=== PATIENT | male | born 1990 | race American Indian/Alaskan Native ===

== ENCOUNTER 2018-06-21 05:19 | Emergency (ER) | payer SELFPAY ==
[2018-06-21 06:13] LABS: Basophils # (Auto) 0.1 K/mm3 (0.0-0.1); Basophils % (Auto) 0.8 % (0.0-1.8); Eosinophils # (Auto) 0.1 K/mm3 (0.0-0.4); Eosinophils % (Auto) 1.1 % (0.0-4.3); Hematocrit 48.1 % (35.5-45.6); Hemoglobin 15.7 gm/dl (11.8-15.2); Lymphocytes % (Auto) 31.4 % (13.4-35.0); Mean Corpuscular HGB Conc 33 % (32-34); Mean Corpuscular Hemoglobin 26 pg (28-32); Mean Corpuscular Volume 81 fl (84-94); Monocytes # (Auto) 0.8 K/mm3 (0.0-0.8); Monocytes % (Auto) 8.9 % (0.0-7.3); Platelet Count 252 K/mm3 (140-440); Red Blood Count 5.96 M/mm3 (3.65-5.03); Red Cell Distribution Width 14.3 % (13.2-15.2)
[2018-06-21 06:21] LABS: BUN/Creatinine Ratio 7; Blood Urea Nitrogen 8 mg/dL (9-20); Calcium 9.7 mg/dL (8.4-10.2); Hemolysis Index 18
[2018-06-21 07:26] LABS: Bilirubin,Urine NEG (Negative); Blood,Urine SM (Negative); Color,Urine Yellow (Yellow); Mucus,Urine FEW /HPF; Urobilinogen,Urine < 2.0 mg/dL (<2.0)
[2018-06-21 07:36] LABS: Amphetamine Screen,Urine PRESUMPTIVE NEGATIVE; Benzodiazepines Screen,Urine PRESUMPTIVE NEGATIVE; Cannabinoid Screen,Urine PRESUMPTIVE NEGATIVE; Cocaine Screen,Urine PRESUMPTIVE NEGATIVE; Methadone Screen,Urine PRESUMPTIVE NEGATIVE; Opiate Screen,Urine PRESUMPTIVE NEGATIVE
[2018-06-21 09:13] VITALS: BP 127/67
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
--- NOTE | 2018-06-21 21:42 | Cat Scan Report ---
FINAL REPORT EXAM: CT HEAD/BRAIN WO CON HISTORY: head injury TECHNIQUE: Noncontrast CT axial images of the brain. PRIORS: None. FINDINGS: No parenchymal mass, mass effect, hemorrhage, midline shift or hydrocephalus. No evidence of acute cortical infarct. No abnormal, extra-axial fluid or air collection. Osseous calvarium grossly intact. Slight cortical discontinuity and probable fracture of left nasal bones. IMPRESSION: 1. No acute intracranial findings. 2. Left nasal fracture, age-indeterminate.
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
--- NOTE | 2018-06-21 22:02 | XRay Report ---
FINAL REPORT EXAM: XR CHEST ROUTINE 2V HISTORY: cough TECHNIQUE: Frontal and lateral chest x-ray. PRIORS: None. FINDINGS: Cardiac and mediastinal silhouette within normal limits. Lungs are normally expanded and grossly clear. No pleural effusion or apparent pneumothorax. Bony thorax grossly unremarkable. IMPRESSION: 1. No acute consolidation.
--- NOTE | 2018-06-21 22:05 | XRay Report ---
FINAL REPORT EXAM: XR FOOT 3+V LT HISTORY: pain TECHNIQUE: 3 views of left foot. PRIORS: None. FINDINGS: No apparent fracture or dislocation. Joint spaces maintained. Soft tissues grossly unremarkable. IMPRESSION: 1. No acute osseous abnormality.
== END 2018-06-21 23:05 | disposition home or self-care (01) ==
LOC: ED 05:19
DX: S02.2XXA Fracture of nasal bones, initial encounter for closed fracture (principal); F10.10 Alcohol abuse, uncomplicated; F17.200 Nicotine dependence, unspecified, uncomplicated; Z79.899 Other long term (current) drug therapy; X58.XXXA Exposure to other specified factors, initial encounter; Y93.89 Activity, other specified; Y99.8 Other external cause status; Y92.89 Other specified places as the place of occurrence of the external cause
CPT/HCPCS: 36415; 70450; 70486; 71046; 73630; 80048; 80307; 81001; 85025; 99285; G0480; 80320

== ENCOUNTER 2021-12-01 15:23 | Emergency (ER) | payer SELFPAY ==
[2021-12-01] MEDS ORDERED: IBUPROFEN 800 MG TAB PO ONE (17:05)
--- NOTE | 2021-12-01 17:08 | Emergency Department Report ---
ED Abdominal Pain HPI - General Chief Complaint: Abdominal Pain Stated Complaint: ABD PAIN PUI?: No Time Seen by Provider: 12/01/21 17:00 Source: patient Mode of arrival: Ambulatory Limitations: No Limitations - History of Present Illness Initial Comments: Chief complaint: Abdominal pain HPI: This is a 31-year-old male without significant past medical history who presents with left lower quadrant abdominal crampy pain for the past 3 weeks. Hurts with straining. Hurts with movement. Hurts with palpation. Subjective fever. No history of abdominal surgeries. Normal appetite. Normal bowel movement yesterday. Intermittent nausea. Intermittent heartburn. He denies genital pain. Denies groin bulging or swelling Complaint: abdominal pain -: Gradual, week(s) (3 weeks) Location: LLQ Radiation: none Severity: moderate Severity scale (0 -10): 8 Quality: cramping Consistency: constant Improves With: nothing Worsens With: movement, other (Straining palpation) Associated Symptoms: nausea, other (Heartburn) - Related Data Previous Rx's Medication Instructions Recorded Last Taken Type Ibuprofen [Motrin] 800 mg PO Q8HR PRN #20 tablet 06/21/18 Unknown Rx Docusate Sodium [Colace] 100 mg PO BID 5 Days #10 capsule 12/01/21 Unknown Rx Allergies Allergy/AdvReac Type Severity Reaction Status Date / Time No Known Allergies Allergy Unverified 06/21/18 05:32 ED Review of Systems ROS: Stated complaint: ABD PAIN Other details as noted in HPI Comment: All other systems reviewed and negative Constitutional: fever. denies: chills, malaise Respiratory: denies: cough, shortness of breath Cardiovascular: denies: chest pain Gastrointestinal: abdominal pain, nausea, vomiting. denies: diarrhea, constipation Genitourinary: denies: urgency, dysuria, frequency, hematuria, discharge, testicular pain, testicular mass Musculoskeletal: denies: back pain Skin: denies: rash, lesions ED Past Medical Hx - Past Medical History Previous Medical History?: No - Surgical History Past Surgical History?: No - Social History Smoking Status: Current Every Day Smoker Substance Use Type: Alcohol - Medications Home Medications: Home Medications Medication Instructions Recorded Confirmed Last Taken Type Ibuprofen [Motrin] 800 mg PO Q8HR PRN #20 tablet 06/21/18 Unknown Rx Docusate Sodium [Colace] 100 mg PO BID 5 Days #10 capsule 12/01/21 Unknown Rx ED Physical Exam - General Limitations: No Limitations General appearance: alert, in no apparent distress, other (Smiling appears well nontoxic) - Head Head exam: Present: atraumatic, normocephalic - Eye Eye exam: Present: normal appearance - ENT ENT exam: Present: mucous membranes moist - Neck Neck exam: Present: normal inspection - Respiratory Respiratory exam: Present: normal lung sounds bilaterally. Absent: respiratory distress - Cardiovascular Cardiovascular Exam: Present: regular rate, normal rhythm, normal heart sounds. Absent: systolic murmur, diastolic murmur, rubs, gallop - GI/Abdominal GI/Abdominal exam: Present: soft, distended, tenderness, guarding, normal bowel sounds, other (Left lower quadrant tenderness with voluntary guarding slight distention of the abdomen). Absent: rebound - Rectal Rectal exam: Present: deferred - Extremities Exam Extremities exam: Present: normal inspection - Back Exam Back exam: Present: normal inspection - Neurological Exam Neurological exam: Present: alert, oriented X3 - Psychiatric Psychiatric exam: Present: normal affect, normal mood - Skin Skin exam: Present: warm, dry, intact, normal color. Absent: rash ED Medical Decision Making - Lab Data Result diagrams: 12/01/21 17:30 12/01/21 17:30 Laboratory Results - last 24 hr 12/01/21 12/01/21 17:30 17:30 WBC 9.5 RBC 5.92 H Hgb 14.5 Hct 45.7 H MCV 77 L MCH 25 L MCHC 32 RDW 14.5 Plt Count 260 Lymph % (Auto) 33.9 Waldo % (Auto) 13.5 H Eos % (Auto) 0.9 Baso % (Auto) 0.8 Lymph # (Auto) 3.2 Waldo # (Auto) 1.3 H Eos # (Auto) 0.1 Baso # (Auto) 0.1 Seg Neutrophils % 50.9 Seg Neutrophils # 4.8 Sodium 139 Potassium 4.2 Chloride 101.0 Carbon Dioxide 25 Anion Gap 17 BUN 5 L Creatinine 1.0 Estimated GFR > 60 BUN/Creatinine Ratio 5 Glucose 86 Calcium 9.7 Total Bilirubin 0.70 AST 25 ALT 13 Alkaline Phosphatase 66 Total Protein 8.5 H Albumin 5.1 H Albumin/Globulin Ratio 1.5 Lipase 18 - Radiology Data Radiology results: report reviewed Patient Name: JERRY BEAVERS Gender: Male Date of : 1990 Referring Provider: RADHA RAMIREZ Organization: [facility] Accession Number: [id number] Requested Date: December 01, 2021 17:05 Report Status: Final Requested Procedure: 1 Procedure Description: CT abdomen pelvis wo con Modality: CT Findings Reporting MD: Raul Suh Dictation Time: December 01, 2021 16:41 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 TECHNIQUE: All CT scans at this location are performed using CT dose reduction for ALARA by means of automated exposure control. COMPARISON: None available. FINDINGS: ABDOMEN: The liver, spleen, gallbladder, bile ducts, pancreas, adrenal glands, kidneys and bowel demonstrate no significant abnormality. No adenopathy is present. The lung bases are clear. PELVIS: The distal ureters, urinary bladder, prostate gland and seminal vesicles are normal area a normal appendix is present and there is no evidence of diverticulitis. No abnormal mass or fluid collection is seen. I do not identify a hernia. No acute osseous abnormality is seen. IMPRESSION: No acute abnormality is identified. - Medical Decision Making Subacute left lower quadrant abdominal pain: With work-up in the emergency department diverticulitis, hernia, obstruction, fecal impaction, ureteral stone all ruled out. CBC chemistry within normal limits. Lipase within normal limits. CT abdomen pelvis without evidence of inflammatory process or obstruction. Clinical impression IBS constipation. Prescribed Colace for 5 days. Referred to internal medicine physician. Critical care attestation.: If time is entered above; I have spent that time in minutes in the direct care of this critically ill patient, excluding procedure time. ED Disposition Clinical Impression: Irritable bowel syndrome, Constipation Disposition: HOME / SELF CARE / HOMELESS Is pt being admited?: No Does the pt Need Aspirin: No Condition: Stable Instructions: Constipation, Adult, [id number], Diet for Irritable Bowel Syndrome Prescriptions: Docusate Sodium [Colace] 100 mg PO BID 5 Days #10 capsule Referrals: MANUELA MARCELINO MD [Staff Physician] - 3-5 Days
--- NOTE | 2021-12-01 17:46 | Cat Scan Report ---
CT OF THE ABDOMEN AND PELVIS WITHOUT CONTRAST INDICATION / CLINICAL INFORMATION: Left lower quadrant abdominal pain. TECHNIQUE: All CT scans at this location are performed using CT dose reduction for ALARA by means of automated exposure control. COMPARISON: None available. FINDINGS: ABDOMEN: The liver, spleen, gallbladder, bile ducts, pancreas, adrenal glands, kidneys and bowel demo nstrate no significant abnormality. No adenopathy is present. The lung bases are clear. PELVIS: The distal ureters, urinary bladder, prostate gland and seminal vesicles are normal area a no rmal appendix is present and there is no evidence of diverticulitis. No abnormal mass or fluid collec tion is seen. I do not identify a hernia. No acute osseous abnormality is seen. IMPRESSION: No acute abnormality is identified. Signer Name: Raul Suh MD Signed: 12/01/2021 5:41 PM Workstation Name: [id number]
[2021-12-01 17:57] LABS: Basophils # (Auto) 0.1 K/mm3 (0.0-0.1); Basophils % (Auto) 0.8 % (0.0-1.8); Eosinophils # (Auto) 0.1 K/mm3 (0.0-0.4); Eosinophils % (Auto) 0.9 % (0.0-4.3); Hematocrit 45.7 % (35.5-45.6); Hemoglobin 14.5 gm/dl (11.8-15.2); Lymphocytes # (Auto) 3.2 K/mm3 (1.2-5.4); Lymphocytes % (Auto) 33.9 % (13.4-35.0); Mean Corpuscular HGB Conc 32 % (32-34); Mean Corpuscular Volume 77 fl (84-94); Monocytes # (Auto) 1.3 K/mm3 (0.0-0.8); Monocytes % (Auto) 13.5 % (0.0-7.3); Platelet Count 260 K/mm3 (140-440); Red Blood Count 5.92 M/mm3 (3.65-5.03); Red Cell Distribution Width 14.5 % (13.2-15.2)
[2021-12-01 18:01] LABS: Alanine Aminotransferase 13 units/L (7-56); Albumin 5.1 g/dL (3.9-5); BUN/Creatinine Ratio 5; Blood Urea Nitrogen 5 mg/dL (9-20); Calcium 9.7 mg/dL (8.4-10.2); Hemolysis Index 2
[2021-12-01 19:11] VITALS: BP 133/77
== END 2021-12-01 19:20 | disposition home or self-care (01) ==
LOC: ED 15:23
DX: K58.9 Irritable bowel syndrome, unspecified (principal); K59.00 Constipation, unspecified; F17.200 Nicotine dependence, unspecified, uncomplicated
CPT/HCPCS: 36415; 74176; 80053; 83690; 85025; 99284